=== PATIENT | female | born 1990 | race Caucasian/White ===

== ENCOUNTER 2018-09-26 00:17 | Outpatient (CLI) | payer BC ==
[2018-09-26 16:24] LABS: Hemoglobin 14.1 g/dL (12.0-16.0); Mean Corpuscular HGB CONC 33.3 g/dL (32.0-36.0); Mean Corpuscular Hemoglobin 31.7 pg (27.0-31.0); Mean Corpuscular Volume 95.3 fL (78.0-98.0); Mean Platelet Volume 8.2 fL (7.4-10.4); Platelet Count 245 thou/uL (130-400); RBC Distribution Width 11.2 % (11.5-14.5); Red Blood Cell (RBC) Count 4.44 mill/uL (4.20-5.40); White Blood Cell (WBC) Count 6.4 thou/uL (4.8-10.8)
[2018-09-26 16:26] LABS: Platelet Count 249 thou/uL (130-400)
[2018-09-26 16:30] LABS: BHCG - Serum Negative (NEGATIVE); INR-International Normal Ratio 0.9; PTT 29.6 SEC (22.9-36.1); Pregs Control Background? CLEAR/WHITE (CLR/WHITE); Pregs Control Bar Appear? YES (CONTROL BAR); Prothrombin Time 12.4 SEC (12.0-14.7)
[2018-09-26 16:33] LABS: Anion Gap 14 mmol/L (10-20); BUN (Urea Nitrogen) 9 mg/dL (7.0-18.7); Calc. Creatinine Clearance 0 mL/min (70-130); Calcium 9.6 mg/dL (7.8-10.44); Carbon Dioxide 22 mmol/L (22-29); Chloride 108 mmol/L (98-107); Estimated GFR-MDRD 85; Glucose 112 mg/dL (70-105); Potassium 3.7 mmol/L (3.5-5.1); Sodium 140 mmol/L (136-145)
== END 2018-09-26 00:18 | disposition home or self-care (01) ==
LOC: LABBT 00:17
PROVIDERS: ATTEND Urology
DX: Z01.812 Encounter for preprocedural laboratory examination (principal); N20.0 Calculus of kidney
CPT/HCPCS: 80048; 84703; 85027; 85576; 85610; 85730

== ENCOUNTER 2018-09-27 06:17 | Observation (INO) | payer BC ==
[2018-09-26 15:44] VITALS: BMI 24.3
[2018-09-27] MEDS ORDERED: Fentanyl 100 MCG/2 ML VIAL ONE ×2 (07:07→09:11)
[2018-09-27] MEDS ORDERED: Midazolam HCl 2 mg/2 ml Vial ONE (08:03)
[2018-09-27] MEDS ORDERED: Ondansetron PF 4 MG/2 ML Vial ONE (08:41)
--- NOTE | 2018-09-27 09:03 | RAD ---
KUB: Comparison: 08-31-18 History: Pre-operative patient, history of renal stone disease. FINDINGS: Two subcentimeter calcifications are seen in the left upper quadrant, likely within the left kidney, one measuring 4 mm overlying the left 12th rib and one measuring approximately 3 mm overlying the dis crystal tip of the left 12th rib. No right upper quadrant calcifications are noted. Calcifications in the pelvis suggest phleboliths. The bowel gas pattern is nonobstructed. Osseous structures demonstrate n o acute findings. IMPRESSION: Two subcentimeter calcifications in the left upper quadrant suggesting left renal calculi. POS: ISABELA
--- NOTE | 2018-09-27 09:25 | OP ---
DATE OF PROCEDURE: 09/27/2018 PREOPERATIVE DIAGNOSIS: Left renal stones. POSTOPERATIVE DIAGNOSIS: Left renal stones. PROCEDURE PERFORMED: Left extracorporeal shock wave lithotripsy. ANESTHETIC: General. EBL: Not recorded. FINDINGS: She had 2 stones seen, probably 3 mm and possibly 1 almost 4 mm in size. The 1 in the mid ureter was treated with 850 shocks at maximum kv level of 5. The 1 in the lower pole was treated with 1150 shocks, maximum kv level of 5. Both appeared to fragment well. No stent was placed. No other stones were seen. DESCRIPTION OF PROCEDURE: After obtaining written and verbal consent from the patient, after documenting normal preoperative blood work and platelet function assay, and being sure we could see stones on her KUB, she was taken to the operating suite. She was placed in the supine position on the treatment table. PlexiPulses were placed on lower extremities and turned on. She was given a general anesthetic and oral obturator intubation. She was coupled to the lithotripsy unit. The initial stone in the mid kidney was placed in the treatment focal point, shockwave therapy was commenced at a rate of 60 at a very low kv. After couple 100 shocks, a few minutes pause was given and then, we reinstituted the shock wave and so we brought up to the level of 5 after about 850 shocks. There was no sizable fragments remaining in this region. She was then repositioned to treat the lower pole stone, which was treated with a 1150 shocks and also appeared to fragment well. We then spent about 10 minutes looking for any other stones or stone fragments and I could not find anything else. At this point, the procedure was terminated and she was awakened, extubated, and taken by stretcher to recovery room. Job ID: [id number]
[2018-09-27] MEDS ORDERED: Morphine 2 MG/ML SYRINGE ONE (13:10)
[2018-09-27 13:20] LABS: Hemoglobin 12.8 g/dL (12.0-16.0)
--- NOTE | 2018-09-27 14:58 | HP ---
A 27-year-old white female, who underwent left ESWL without stent today for 2 relatively small renal stones that were treated with a total of 2000 shocks at level 5. Her preoperative blood work and platelet function assay were normal. She did well postop, but then urinated grossly bloody urine and then had significant left flank pain shortly after that requiring some morphine to be given. Her vital signs have been good. Hemoglobin is 12.8. She did receive 2.5 L of IV fluids and so was considering IV fluid replacement compared to yesterday and dropped slightly, but not probably significantly. She is not tachycardic or hypotensive. She does have some left costovertebral angle tenderness. Abdomen is otherwise soft and at most, minimally tender without rebound or guarding. She started to feel somewhat better, but she lives hour and a half away. We will go ahead at this point and place her in 23-hour observation because of the significant pain she had the gross hematuria, which is a bit more than then we would normally see with ESWL and the concern that she could be passing some either stone fragments that are hurting her or perhaps some blood clots that are hurting her or on the outside chance, she is developing a renal hematoma. I do not think she meets any criteria for CAT scan right now. I think just IV fluids and rest should be adequate and if she is feeling much better over the next few hours, we can let her go home. Job ID: [id number]
[2018-09-27] MEDS ORDERED: PROPOFOL 200 MG/20 ML VIAL ONE (14:59)
[2018-09-27] MEDS ORDERED: Lidocaine 1% PF 5 ML VIAL ONE (14:59)
[2018-09-27] MEDS ORDERED: HYDROcodone/Acetaminophen 5/325 mg Tablet PO PRN (17:20)
[2018-09-27] MEDS ORDERED: Ondansetron ODT 4 MG TAB PO PRN (17:21)
[2018-09-27] MEDS ORDERED: Acetaminophen 325 MG TAB PO PRN (17:21)
[2018-09-27] MEDS: D5 1/2 NS w/20 mEq KCL 1,000 ML IV SCH (17:45)
[2018-09-27] MEDS: Bupropion 100 MG SR TAB PO SCH (20:45)
[2018-09-28] MEDS: D5 1/2 NS w/20 mEq KCL 1,000 ML IV SCH (04:30)
[2018-09-28 08:41] VITALS: BP 113/78; TEMP 97.9
[2018-09-28] MEDS: Bupropion 100 MG SR TAB PO SCH (09:46)
== END 2018-09-28 11:16 | disposition home or self-care (01) ==
LOC: SDC 06:17 → SJJU 16:11
PROVIDERS: ADMIT Urology; ATTEND Urology
PROC: 0TF4XZZ Fragmentation in Left Kidney Pelvis, External Approach (ICD-10-PCS; principal; 2018-09-27)
DX: N20.0 Calculus of kidney (principal); Z79.899 Other long term (current) drug therapy
CPT/HCPCS: 36415; 74018; 85018; 90471; 90686; 96360; 96361; G0008; G0378; J2001; J2250; J2270; J2405; J2704; J3010